=== PATIENT | male | born 2000 | race Caucasian/White ===

== ENCOUNTER 2023-01-08 15:45 | Emergency (ER) | payer OTHER ==
[2023-01-08 15:55] VITALS: BP 145/64
[2023-01-08] MEDS ORDERED: lidocaine 1% 20 ML MDV SUBQ ONE (16:28)
[2023-01-08] MEDS ORDERED: BACITRACIN ZINC OINT 1 PACKET TOP STA (16:28)
--- NOTE | 2023-01-08 16:45 | ED Physician Documentation ---
History of Present Illness - Stated complaint Stated Complaint: R HAND LAC - Chief complaint Chief Complaint: Ext Problem - Additonal information Additional information: 22-year-old male presents emergency department for evaluation of a laceration to the palm of his right hand. Reports reaching into a canvas bag that had an exposed knife. He was punctured by the tip. He is right-hand dominant. Bleeding controlled with pressure. Reports up-to-date tetanus. Review of Systems Skin: reports: Laceration (s) PD PAST MEDICAL HISTORY - Past Medical History Past Medical History: No - Past Surgical History Past Surgical History: Yes HEENT: Tonsil/Adenoidectomy - Present Medications Home Medications: Ambulatory Orders Medication Instructions Recorded Confirmed No Known Home Medications 01/08/23 01/08/23 - Allergies Allergies/Adverse Reactions: Allergies Allergy/AdvReac Type Severity Reaction Status Date / Time No Known Drug Allergies Allergy Verified 01/08/23 16:12 - Social History Does the pt smoke?: No Smoking Status: Never smoker - Immunizations Immunizations are current?: Yes PD ED PE EXPANDED - Extremities Extremities: Right hand (2.5 cm laceration to the palm of the right hand just below the base of the thumb. Normal flexion extension of the thumb and index fingers in all planes. Neurovascularly intact.) Results - Vitals Vitals: Vital Signs - 24 hr 01/08/23 15:51 Temperature 36.6 C Heart Rate 81 Respiratory 20 Rate Blood Pressure 145/64 H O2 Saturation 98 Oxygen O2 Source Room air Procedures - Laceration (location) right palm Length in cm: 2.5 Wound type: Linear, Into muscle, Clean Neurovascular status: Sensory intact, Motor intact Tendon involvement: Tendon intact Anesthesia: Lidocaine 1% Wound preparation: Chlorhexadine, Irrigated copiously NS Skin layer closure: Nylon, Interrupted, Size #-0 - enter number (4), Sutures - enter # (4) Other: Patient tolerated well, No complications, Neurovascular intact, Dressing applied, Tetanus UTD PD Medical Decision Making - ED course Complexity details: considered differential, d/w patient ED course: 22-year-old male presents emergency department for evaluation of a right palm laceration sustained when he reached into a canvas bag and did not really ut ilize that a knife was on sheath. He sustained a 2.5 cm laceration to the base of the right palm. He is neurovascularly intact without evidence of tendon injury. Tetanus is up-to-date. This was a deeper puncture/flap laceration. Wound was closed with 4 sutures. 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 We discussed the usual emergent return precautions for concerns of infection. Departure - Departure Disposition: 01 Home, Self Care Clinical Impression: Laceration of right hand Qualifiers: Encounter type: initial encounter Foreign body presence: without foreign body Qualified Code(s): S61.411A - Laceration without foreign body of right hand, initial encounter Condition: Stable Record reviewed to determine appropriate education?: Yes Instructions: ED Laceration All Comments: Marino the laceration of your right hand was closed with 4 sutures. Your suture(s) should be removed in about 10 days. In 24 hours you may remove the dressing wash gently with warm soap and water, apply any antibiotic ointment and a simple bandage. Your tetanus is up-to-date. Please attempt to keep your wound clean and dry. Do not submerge it in dirty dishwater or bath water. We have given you a wrist splint to help you minimize the movement of the palm and hand while this heals. It would be important to avoid torquing, heavy lifting, pushing, pulling while this laceration heals. Return to the emergency department if you have any concerns of infection such as redness, fevers milky drainage increased pain.
== END 2023-01-08 16:58 | disposition home or self-care (01) ==
LOC: ED 15:45
DX: S61.411A Laceration without foreign body of right hand, initial encounter (principal); W26.0XXA Contact with knife, initial encounter; Y93.89 Activity, other specified
CPT/HCPCS: 12001; 99282; A9270